=== PATIENT | male | born 1945 | race Caucasian/White ===

== ENCOUNTER 2019-04-17 22:44 | Emergency (ER) | payer OTHER ==
[~2019-04-17] VITALS: Ht 167.6 cm; Wt 85.0 kg
[2019-04-17 23:52] LABS: BASOPHILS # (AUTO) 0.04 x10^3/uL (0-0.1); BASOPHILS % (AUTO) 0 % (0-1); EOSINOPHILS # (AUTO) 0.16 x10^3/uL (0-0.4); EOSINOPHILS % (AUTO) 2 % (1-7); LYMPHOCYTES % (AUTO) 15 % (22-44); MD NO; MEAN CORPUSCULAR HEMOGLOBIN 30.1 pg (27.5-34.5); MEAN CORPUSCULAR HGB CONC 33.7 g/dL (33.2-36.2); MEAN CORPUSCULAR VOLUME 89.3 fL (81-97); MONOCYTES # (AUTO) 0.65 x10^3/uL (0.2-0.8); MONOCYTES % (AUTO) 8 % (2-9); NEUTROPHILS # (AUTO) 6.51 x10^3/uL (1.8-6.8); NEUTROPHILS % (AUTO) 75 % (42-75); PLATELET COUNT 200 x10^3/uL (130-400); RED CELL DISTRIBUTION WIDTH 17.5 % (9.4-14.8)
[2019-04-18 00:01] LABS: INTERNATIONAL NORMALIZED RATIO 1.02 (0.93-1.1); PROTHROMBIN TIME 10.7 Seconds (9.6-11.5)
[2019-04-18 00:05] LABS: ALANINE AMINOTRANSFERASE 31 U/L (12-78); ALBUMIN 2.2 g/dL (3.4-5.0); ANION GAP 9 mmol/L (5-15); CALCIUM 8.3 mg/dL (8.5-10.1); CHLORIDE 100 mmol/L (98-107); CREATININE 1.56 mg/dL (0.7-1.3)
[2019-04-18 00:09] LABS: ALKALINE PHOSPHATASE 371 U/L (45-117); BILIRUBIN,TOTAL 0.6 mg/dL (0.2-1.0); TOTAL PROTEIN 5.9 g/dL (6.4-8.2); TROPONIN I < 0.015 ng/mL (0.000-0.045)
[2019-04-18] MEDS ORDERED: LIDOCAINE-MPF 1%, 5ML ONE (01:23)
--- NOTE | 2019-04-18 01:40 | NUR ---
CONSENT OBTAINED FOR PARACENTESIS. KEN ARAUJO AT BEDSIDE FOR PROCEDURE. PT TOLERATING WELL. VSS.
--- NOTE | 2019-04-18 02:45 | NUR ---
PARACENTESIS COMPLETE WITH 4.5 LITERS DRAINED. PT STATES GREAT RELIEF AT THIS TIME. ABDOMEN LESS RIGID AND FIRM, PT STATES HE CAN BREATHE BETTER. BP REMAINED STABLE DURING ENTIRE PROCEDURE.
[2019-04-18 02:49] VITALS: BP 116/71
== END 2019-04-18 03:36 | disposition home or self-care (01) ==
LOC: ED 22:50
DX: R18.8 Other ascites (principal); K74.60 Unspecified cirrhosis of liver
CPT/HCPCS: 36415; 49083; 71045; 80053; 82140; 84484; 85025; 85610; 93005; 99285